=== PATIENT | male | born 1960 | race Caucasian/White ===

== ENCOUNTER 2016-08-06 12:41 | Observation (INO) | payer MEDICARE, BC ==
[~2016-08-06] VITALS: Ht 167.6 cm
[2016-08-06 14:56] LABS: BASOPHILS 0 % (0.0-2.0); EOSINOPHILS 0 % (0-7); HEMATOCRIT 38.5 % (42.0-54.0); HEMOGLOBIN 13.6 g/dL (13.5-17.5); IMMATURE GRANULOCYTES 0.4 % (0-5); LYMPHOCYTES 9.4 % (15-50); MCH 36.1 pg (26.0-34.0); MCHC 35.3 g/dL (31.0-37.0); MCV 102.1 fL (80.0-100.0); MEAN PLATELET VOLUME 10.6 fL (7.4-10.4); MONOCYTES 9.1 % (2-11); NEUTROPHILS 81.1 % (40-80); PLATELET COUNT 98 10x3/uL (130-400); RBC 3.77 10x6/uL (4.20-6.10); RDW 13.6 % (11.5-14.5); WBC 7.4 10x3/uL (4.8-10.8)
[2016-08-06 15:23] LABS: ALKALINE PHOSPHATASE 45 U/L (46-116); ALT (SGPT) 66 U/L (10-68); BILIRUBIN - TOTAL 0.59 mg/dL (0.2-1.3); CALC OSMOLALITY 286 mosm/kg (275-300); CARBON DIOXIDE 28.9 mmol/L (21.0-32.0); CHLORIDE - SERUM 103 mmol/L (98-107); CREATININE - SERUM 1.4 mg/dL (0.6-1.3); POTASSIUM - SERUM 4.9 mmol/L (3.5-5.1); PROTEIN - SERUM 7.7 g/dL (6.4-8.2); SODIUM 140 mmol/L (136-145); UREA NITROGEN 23 mg/dL (7-18); eGFR NON AFRICAN AMERICAN 56 mL/min (90-120)
[2016-08-06 15:24] LABS: GLUCOSE 179 mg/dL (74-106)
[2016-08-06 15:27] LABS: CREATINE KINASE 94 UL (21-232); PRO BNP 181 pg/mL (0-125); TROPONIN-I < 0.017 ng/mL (0.000-0.060)
[2016-08-06 16:01] LABS: PLATELET ESTIMATE DECREASED
[2016-08-06 18:53] LABS: APPEARANCE CLEAR (CLEAR); BILIRUBIN NEGATIVE (NEGATIVE); COLOR YELLOW (YELLOW); GLUCOSE NEGATIVE (NEGATIVE); KETONE NEGATIVE (NEGATIVE); LEUKOCYTE ESTERASE NEGATIVE (NEGATIVE); NITRITE NEGATIVE (NEGATIVE); PROTEIN TRACE mg/dL (NEGATIVE); UROBILINOGEN NORMAL (NORMAL)
[2016-08-06 20:49] LABS: MAGNESIUM - SERUM 1.6 mg/dL (1.8-2.4); THYROID STIMULATING HORMONE 0.52 uIU/mL (0.36-3.74)
--- NOTE | 2016-08-06 22:35 | NUR ---
RECIEVED TO [id number] VIA STRECHER FROM ER.ACCOMPANIED BY STAFF AND SPOUSE.AWAKE ALERT,ORIENTED. NO COMPLIANTS VOICED AT PRESENT. ASSESSMENT DONE. CL IN REACH. AT BEDSIDE.
[2016-08-07 01:08] VITALS: BP 103/66; Ht 167.6 cm
--- NOTE | 2016-08-07 02:31 | NUR ---
RESTING QUIETLY. NO DISTRESS NOTED. CL IN REACH.
[2016-08-07] MEDS ORDERED: XANAX0.25 MG PO ×2 (04:31→04:54)
[2016-08-07] MEDS ORDERED: BACTRIM 400-801 TAB PO (04:55)
[2016-08-07] MEDS ORDERED: LIPITOR20 MG PO (04:56)
[2016-08-07] MEDS ORDERED: ASCORBIC ACID500 MG (04:58)
[2016-08-07] MEDS ORDERED: PREDNISONE5 MG PO (04:58)
[2016-08-07] MEDS ORDERED: AMBIEN5 MG PO (04:59)
[2016-08-07] MEDS ORDERED: METOPROLOL TAR100 M1 (05:00)
[2016-08-07] MEDS ORDERED: IMURAN50 MG (05:02)
[2016-08-07] MEDS ORDERED: MAG-OXIDE400 MG PO (05:03)
[2016-08-07] MEDS ORDERED: FERROUS SULFAT325 MG PO (05:04)
[2016-08-07] MEDS ORDERED: LOVAZA1 G PO (05:06)
[2016-08-07] MEDS ORDERED: VALCYTE450 MG (05:08)
[2016-08-07] MEDS ORDERED: GABAPENTIN100 MG PO (05:08)
[2016-08-07] MEDS ORDERED: LOMOTIL TABLET1 TAB (05:10)
[2016-08-07] MEDS ORDERED: ZOFRAN4 MG PO (05:10)
[2016-08-07] MEDS ORDERED: THEREMS M ×7 (05:11→05:20)
[2016-08-07] MEDS ORDERED: PROGRAF0.5 M1 (05:13)
[2016-08-07] MEDS ORDERED: [UNRECOGNIZED DRUG - OTHER] ×3 (05:14→05:23)
[2016-08-07] MEDS ORDERED: ZOFRAN ODT4 MG/UDTAB PO (05:17)
[2016-08-07] MEDS ORDERED: TACROLIMUS ANHYD1 MG PO (05:17)
[2016-08-07] MEDS ORDERED: HYDROCODONE-APA1 TAB (05:20)
[2016-08-07] MEDS ORDERED: CIALIS5 MG PO (05:21)
[2016-08-07] MEDS ORDERED: ALENDRONATE SOD70 MG PO (05:21)
[2016-08-07] MEDS ORDERED: OMEPRAZOLE40 MG PO (05:22)
[2016-08-07] MEDS ORDERED: IPRATROPIUM BR21 MCG NASAL (05:22)
[2016-08-07] MEDS ORDERED: FLUTICASONE PRO16 GM NASAL (05:22)
--- NOTE | 2016-08-07 07:00 | NUR ---
REPORT RECIEVED ASSUMED CARE. PATIENT IN BED WITH IV INTACT. NO COMPLAINTS. CALL LIGHT WITHIN REACH.
[2016-08-07] MEDS ORDERED: MECLIZINE HCL25 MG PO (07:18)
--- NOTE | 2016-08-07 08:46 | NUR ---
PATIENT RECIEVED DC INSTRUCTIONS. VERBALIZED UNDERSTANDING. NO QUESTIONS AT THIS TIME. IV REMOVED WITH CATH TIP INTACT. AWAITING TRANSPORTATION FOR DC. CALL LIGHT WITHIN REACH.
--- NOTE | 2016-08-07 09:54 | NUR ---
PATIENT ESCORTED OUT OF HOSPITAL VIA WC WITH PERSONAL BELONGINGS BY VOLUNTEER TO PRIVATE VEHICLE.
--- NOTE | 2016-08-09 08:46 | HP ---
PATIENT: FELI CARRERO MEDICAL RECORD: [id number] ACCOUNT: [id number] LOCATION:D.MS [facility]2236 : 64 ADMISSION DATE: 08/06/16 HISTORY AND PHYSICAL EXAMINATION DATE OF ADMISSION: 08/06/2016 CHIEF COMPLAINT: Nausea and vomiting. HISTORY OF PRESENT ILLNESS: The patient is a 56-year-old gentleman, who has had a history of bilateral lung transplant. The patient states on Thursday he became acutely ill with acute nausea and vomiting. He had dizziness as well. On Thursday, symptoms had resolved. On Thursday, this returned. The patient was unable to keep any oral intake down. It was felt the patient warranted admission. PAST MEDICAL HISTORY: His past history is significant that he has had bilateral lung transplant. He has had a history of back surgery times 2, hyperlipidemia, and insomnia. He has had a history of shortness of breath. FAMILY HISTORY: His family history is significant that father had esophageal cancer. Sister had malignant breast cancer. Sister had ovarian cancer as well. Mother had Parkinson disease. ALLERGIES: ANTI-INFLAMMATORIES. MEDICATIONS: Alendronate 70 mg once a week, alprazolam 0.25 p.o. q.8 hours p.r.n. anxiety, Vitamin C 500 mg p.o. q. day, atorvastatin 20 mg once a day, azathioprine 50 mg p.o. b.i.d., Cialis 5 mg, 1 p.o. q. day, vitamin B12 of 2000 mcg daily, Lomotil p.r.n. diarrhea, ferrous sulfate 325 one p.o. t.i.d., gabapentin 100 mg t.i.d., hydrocodone 10/325, one every 6 hours p.r.n. severe pain, ipratropium 0.03% nasal spray, mag oxide 400 mg 2 tabs p.o. b.i.d., metoprolol tartrate 100 mg p.o. b.i.d., omega 3 one b.i.d., Prilosec 40 mg, 1 p.o. b.i.d., Zofran 4 mg, 1 p.o. q. day, prednisone 5 mg once a day, Bactrim 400/80, one p.o. q. day, and zolpidem 5 mg once a day. HABITS: None. REVIEW OF SYSTEMS: CONSTITUTIONAL: He denies any headaches, seizure or syncope. HEENT: He Denies change in visual or auditory acuity. PULMONARY: He denies any shortness of breath, cough, congestion, history of asthma, or bronchitis. CARDIOVASCULAR: No chest pain, palpitation, PND, or orthopnea. GASTROINTESTINAL: As stated above. GENITOURINARY: No urgency, frequency, or dysuria. PHYSICAL EXAMINATION: GENERAL: In the Emergency Room, the patient was acutely ill. VITAL SIGNS: Stable. HEENT: Normal. NEUROLOGIC: Cranial nerves II through XII were grossly intact. NECK: Supple. There is no adenopathy. HEART: Had a regular rate and rhythm without any murmurs, gallops or rubs. LUNGS: Clear. HISTORY AND PHYSICAL [id number] FELI CARRERO ABDOMEN: Soft. Bowel sounds are positive. LABORATORY DATA: The patient did have slight elevation in his creatinine. ASSESSMENT: Slight dehydration with chronic nausea, vomiting, and acute vertigo. PLAN: The patient will be admitted. He will be given meclizine as well as IV hydration, antiemetics, reevaluate in the a.m. TRANSINT:[id number] Voice Confirmation ID: [id number] DOCUMENT ID: [id number] WINNIE BENSON MD at 0846 CC: [id number] DICTATION DATE: 08/07/16 0741 TIP MENDER: 08/07/16 0826 DIS IN 08/07/16 [place] [id number] [place] [id number]
== END 2016-08-07 09:55 | disposition home or self-care (01) ==
LOC: D.ER 12:41 → OBSVTIME 21:47 → D.MS 21:47
PROVIDERS: Emergency Medicine; Nurse Practitioner Family; ADMIT Family Medicine
DX: E86.0 Dehydration (principal); R42 Dizziness and giddiness; E78.5 Hyperlipidemia, unspecified; G47.00 Insomnia, unspecified; Z94.2 Lung transplant status

== ENCOUNTER 2016-10-02 11:11 | Day surgery (SDC) | payer MEDICARE, BC ==
[~2016-10-02] VITALS: Ht 167.6 cm; Wt 95.0 kg
[~2016-10-02 11:11] MED LIST: ALENDRONATE SOD70 MG PO; AMBIEN5 MG PO; ASCORBIC ACID500 MG; BACTRIM 400-801 TAB PO; CIALIS5 MG PO; FERROUS SULFAT325 MG PO; FLUTICASONE PRO16 GM NASAL; GABAPENTIN100 MG PO; HYDROCODONE-APA1 TAB; IMURAN50 MG; IPRATROPIUM BR21 MCG NASAL; LIPITOR20 MG PO; LOMOTIL TABLET1 TAB; LOVAZA1 G PO; MAG-OXIDE400 MG PO; MECLIZINE HCL25 MG PO; METOPROLOL TAR100 M1; OMEPRAZOLE40 MG PO; PREDNISONE5 MG PO; PROGRAF0.5 M1; TACROLIMUS ANHYD1 MG PO; THEREMS M; VALCYTE450 MG; XANAX0.25 MG PO; ZOFRAN ODT4 MG/UDTAB PO; ZOFRAN4 MG PO; [UNRECOGNIZED DRUG - OTHER]
[2016-10-02 12:28] LABS: BASOPHILS 0 % (0.0-2.0); EOSINOPHILS 0.2 % (0-7); HEMATOCRIT 35.7 % (42.0-54.0); HEMOGLOBIN 12.9 g/dL (13.5-17.5); IMMATURE GRANULOCYTES 0.2 % (0-5); LYMPHOCYTES 17.1 % (15-50); MCH 36.5 pg (26.0-34.0); MCHC 36.1 g/dL (31.0-37.0); MCV 101.1 fL (80.0-100.0); MEAN PLATELET VOLUME 10.6 fL (7.4-10.4); NEUTROPHILS 75.5 % (40-80); PLATELET COUNT 108 10x3/uL (130-400); RBC 3.53 10x6/uL (4.20-6.10); RDW 12.6 % (11.5-14.5); WBC 5.9 10x3/uL (4.8-10.8)
[2016-10-02 12:47] LABS: ANION GAP 12.9 mmol/L (8-16); CALCIUM 9.2 mg/dL (8.5-10.1); CARBON DIOXIDE 26.5 mmol/L (21.0-32.0); CREATININE - SERUM 1.9 mg/dL (0.6-1.3); POTASSIUM - SERUM 4.4 mmol/L (3.5-5.1)
[2016-10-02 13:12] VITALS: BP 132/76; Ht 167.6 cm; Wt 95.0 kg
--- NOTE | 2016-10-02 15:27 | NUR ---
1450- IV D/C'D, PT TOLERATED. CATHETER INTACT. 1510- DISCHARGE INSTRUCTIONS COMPLETED. PT VERBALIZED UNDERSTANDING. PAPERWORK SIGNED 1515- PT DISCHARGED VIA WHEELCHAIR WITH
--- NOTE | 2016-10-07 10:50 | OP ---
PATIENT NAME: FELI CARRERO MEDICAL RECORD: [id number] :64 LOCATION:D.OPS ADMISSION DATE: SURGEON: LORE MATTA DO DATE OF OPERATION: 10/02/2016 PROCEDURE: Colonoscopy. SCOPE: Olympus video pediatric colonoscope. MEDICATIONS: Propofol 300 mg IV per anesthesia. INDICATIONS FOR PROCEDURE: Personal history of colon polyps. FINDINGS: Informed consent was given. The patient was made comfortable with the above medication. After reaching an adequate level of sedation by slow IV push, the patient was placed in the left side. The digital rectal examination was performed that was normal. The endoscope was then advanced under direct visualization through the rectum to the terminal ileum. Scope was withdrawn slowly and the mucosa was carefully examined. Withdrawal time was 11 minutes total. The mucosa was normal throughout the entire colon and terminal ileum to the level of the rectum where there were some small petechial sites which could be prep related. This could also be proctitis, so random biopsies were performed to send for histology. Scope was withdrawn from the patient. The patient tolerated the procedure well and there were no complications. ESTIMATED BLOOD LOSS: Less than 3 cc. IMPRESSION: Normal colonoscopy to terminal ileum other was than some mild proctitis type changes in the rectum, which could be prep related. Biopsies pending. PLAN AND RECOMMENDATIONS: 1. Discharge home when recovery parameters are met. 2. Continue current diet and medications. 3. Await biopsy specimens results. 4. Recall colonoscopy in 3 years. TRANSINT:[id number] Voice Confirmation ID: [id number] DOCUMENT ID: [id number] LORE MATTA DO at 1050 CC: [id number] DICTATION DATE: 10/02/16 1401 CONSTRUCTION FIELD ENGINEER: 10/02/16 1710 [facility] 10/02/16 [place] [id number]
== END 2016-10-02 15:15 | disposition home or self-care (01) ==
LOC: D.OPS 11:11
PROVIDERS: Anesthesiology
DX: Z86.010 Personal history of colon polyps (principal); I10 Essential (primary) hypertension; K21.9 Gastro-esophageal reflux disease without esophagitis

== ENCOUNTER → 2017-07-15 08:07 | Outpatient (CLI) | payer MEDICARE, BC ==
[2016-10-02 13:12] VITALS: BMI 33.8
[~2017-07-15 08:07] MED LIST changes: +HYDROCODONE-APA1 TAB PO; +JANUVIA25 MG PO; +VITAMIN B-121000 MCG PO
== END | disposition home or self-care (01) ==
LOC: D.NM 08:07
DX: R10.9 Unspecified abdominal pain (principal)

== ENCOUNTER 2017-07-31 07:11 | Day surgery (SDC) | payer MEDICARE, BC ==
[2017-07-30 14:09] LABS: BASOPHILS 0.2 % (0-2); EOSINOPHILS 0.2 % (0-7); HEMATOCRIT 36.1 % (42.0-54.0); HEMOGLOBIN 12.6 g/dL (13.5-17.5); IMMATURE GRANULOCYTES 0.3 % (0-5); LYMPHOCYTES 15.3 % (15-50); MCH 36.2 pg (26.0-34.0); MCHC 34.9 g/dL (31.0-37.0); MCV 103.7 fL (80.0-100.0); MEAN PLATELET VOLUME 10.2 fL (7.4-10.4); MONOCYTES 8.2 % (2-11); NEUTROPHILS 75.8 % (40-80); RBC 3.48 10x6/uL (4.20-6.10); RDW 12.8 % (11.5-14.5); WBC 5.7 10x3/uL (4.8-10.8)
[2017-07-30 14:17] LABS: PLATELET COUNT 142 10x3/uL (130-400)
[2017-07-30 14:21] LABS: CALCIUM 9.4 mg/dL (8.5-10.1); CARBON DIOXIDE 28.9 mmol/L (21.0-32.0); CREATININE - SERUM 1.5 mg/dL (0.6-1.3); POTASSIUM - SERUM 4.9 mmol/L (3.5-5.1)
[~2017-07-31] VITALS: Ht 165.1 cm; Wt 92.1 kg
--- NOTE | ~2017-07-31 | OP ---
PATIENT NAME: FELI CARRERO MEDICAL RECORD: [id number] :64 LOCATION:D.OPS ADMISSION DATE: SURGEON: CHELE PEREZ MD DATE OF OPERATION: 07/31/2017 PREOPERATIVE DIAGNOSES: 1. Gallstones. 2. Pulmonary alveolar proteinosis, status post bilateral lung transplant. 3. Hypertension. 4. Hyperlipidemia. 5. Diabetes mellitus. POSTOPERATIVE DIAGNOSES: 1. Gallstones. 2. Pulmonary alveolar proteinosis, status post bilateral lung transplant. 3. Hypertension. 4. Hyperlipidemia. 5. Diabetes mellitus. PROCEDURE: Laparoscopic cholecystectomy. SURGEON: Chele Perez MD REPORT OF PROCEDURE: The patient's abdomen was prepped and draped in sterile fashion. A cutdown was made on the superior aspect of the umbilicus, 0 Vicryls were placed in the fascia bilaterally and the fascia was incised with 15-blade. I then bluntly entered the peritoneal cavity and placed a 12-mm Robert port. Under direct visualization, a 5 mm trocar was placed in the epigastrium and 2 more 5-mm trocars were placed in the right subcostal region. The gallbladder was grasped and elevated. The cystic artery and cystic duct were dissected free and these were clipped proximally and distally and ligated in standard fashion. The gallbladder was taken off the liver bed using electrocautery and placed into the right upper quadrant. Any bleeding from the liver bed was then treated with electrocautery. At this point, the ports and insufflation were then removed and the gallbladder was taken out through the umbilicus. The umbilical fascia was closed with interrupted 0 Vicryls times 3. The wounds were then infused with a total of 10 mL of 0.25% Marcaine with epinephrine. The skin incisions were all closed with subcutaneous 5-0 Monocryl and dressed appropriately. COMPLICATIONS: None. CONDITION: Stable. ANESTHESIA: General endotracheal and local. BLOOD LOSS: Minimal. TRANSINT:[id number] Voice Confirmation ID: [id number] DOCUMENT ID: [id number] OPERATIVE REPORT [id number] FELI CARRERO CHELE PEREZ MD CC: WINNIE BENSON [id number] DICTATION DATE: 07/31/17 1122 SKI BASE TRIMMER: 07/31/17 1134 REG [facility] [address] [place] [address]
[~2017-07-31 07:11] MED LIST changes: -HYDROCODONE-APA1 TAB PO
[2017-07-31 08:58] VITALS: BP 156/87; Ht 165.1 cm; Wt 92.1 kg
[2017-07-31] MEDS ORDERED: HYDROCODONE-APA1 TAB PO (11:18)
== END 2017-07-31 14:00 | disposition home or self-care (01) ==
LOC: D.OPS 07:11 → D.PAN 11:30 → D.OPS 11:30
PROVIDERS: Surgery
DX: K80.80 Other cholelithiasis without obstruction (principal); I10 Essential (primary) hypertension; E78.5 Hyperlipidemia, unspecified; E11.9 Type 2 diabetes mellitus without complications; J84.01 Alveolar proteinosis; G47.30 Sleep apnea, unspecified; Z01.812 Encounter for preprocedural laboratory examination

== ENCOUNTER 2017-12-10 05:41 | Emergency (ER) | payer MEDICARE, BC ==
[~2017-12-10] VITALS: Ht 165.1 cm; Wt 90.9 kg
[~2017-12-10 05:41] MED LIST changes: +HYDROCODONE-APA1 TAB PO
[2017-12-10 05:47] VITALS: Ht 165.1 cm; Wt 90.9 kg
[2017-12-10 07:13] VITALS: BP 121/87
== END 2017-12-10 07:13 | disposition home or self-care (01) ==
LOC: D.ER 05:41
DX: G56.03 Carpal tunnel syndrome, bilateral upper limbs (principal); M54.12 Radiculopathy, cervical region; E11.9 Type 2 diabetes mellitus without complications; I10 Essential (primary) hypertension

== ENCOUNTER 2018-05-20 14:42 | Inpatient (IN) | payer MEDICARE, BC ==
[~2018-05-20] VITALS: Ht 165.1 cm; Wt 85.0 kg
--- NOTE | ~2018-05-20 | DS ---
PATIENT:FELI CARRERO :64 MEDICAL RECORD: [id number] DISCHARGE SUMMARY ADMISSION DATE: 05/20/18 DISCHARGE DATE: 05/22/18 DATE OF ADMISSION: 05/20/2018 DATE OF DISCHARGE: 05/22/2018 ADMISSION DIAGNOSES: Febrile illness and patient on immunosuppressants. DISCHARGE DIAGNOSES: Febrile illness and the patient was on immunosuppressants for a bilateral lung transplant, also diabetes, chronic back pain. HOSPITAL COURSE: The patient was admitted to the Emergency Room with a temperature reported up to 101. Vital signs on admission recorded temperature of 100. The patient was cultured. Chest x-ray: No acute findings. CT abdomen and pelvis, no acute findings. Blood and urine cultures negative to date. The patient is anxious to go home. He is concerned about acquiring infection with hospitalization. He is discharged to home. Has remained afebrile. He was discharged home in improved condition with no recurrence of temperature spikes. PHYSICAL EXAMINATION: VITAL SIGNS ON DISCHARGE: Temperature 97.9, blood pressure 150/86, heart rate 67, respirations 18, O2 sats 99% room air. HEART: Regular rate and rhythm. LUNGS: Clear. ABDOMEN: Soft, nontender. Bowel sounds all 4 quadrants. EXTREMITIES: Present times 4. NEUROLOGIC: Intact. LABORATORY DATA: CBC: White count 4.9, hemoglobin 10.4, hematocrit 30.1, platelets 108. Chemistry: BUN 23, creatinine 1.4, sodium 144, potassium 4.3, chloride 107, bicarbonate 22.9, glucose 114. DISCHARGE INSTRUCTIONS: The patient will follow up with Dr. Saenz next week. We will resume his prophylactic medications as well as his immunosuppressants. Copy of his CT results given to the patient. He will follow up with the transplant center in [place] next week, 05/30/2018. The CT showed sigmoid diverticulosis without evidence of diverticulitis. A small pulmonary nodule. The visualized lung bases up to 4 mm in the left lower lobe. This will be reevaluated as an outpatient with his pearl glue drier in [place], again copy of the CT results given to the patient. He understands to return to the ER with any temperature spikes and follow up with Dr. Saenz his primary care physician next week. TRANSINT:[id number] Voice Confirmation ID: [id number] DOCUMENT ID: [id number] DISCHARGE SUMMARY REPORT [id number] MAGAN,ANNA VELASQUEZ DO at 1119 CC: [id number] DICTATION DATE: 05/22/18 0959 AVIONICS SYSTEMS ENGINEER: 05/22/18 2241 DIS IN 05/22/18 [place] [id number] [place] [address]
--- NOTE | ~2018-05-20 | MORECARE ---
CASE MANAGEMENT DISCHARGE SUMMARY PATIENT: FELI CARRERO UNIT: [id number] ADM DATE: 05/20/18 AGE: 57 : 64 SEX: M ROOM/BED: D.2220 AUTHOR: LAURA RATLIFF PHYSICIAN: REFERRING PHYSICIAN: WINNIE BENSON MD DATE OF SERVICE: 05/26/18 Discharge Plan Patient Name: FELI CARRERO [facility] [facility] 1960 Planned Disposition: Home Anticipated Discharge Date: 05/22/18 Discharge Date: 05/22/2018 Expected LOS: 2 Initial Reviewer: [email or web address] Initial Review Date: 05/20/2018 Generated: 05/26/18 11:30 am Coverage Notice Reviewer: [id number] Kavita Crocker Notice Issued Date-Time: 05/22/2018 12:18 Notice Type: IM Discharge Notice Notice Delivered To: Patient Relationship to Patient: Brokerage Office Manager Name: Delivery Method: HAND - Hand Delivered Ayesha Days: Prior Verbal Notification: Recipient Understood Notice: Yes Recipient Signature: Yes Med Rec Note Co-signed by Attending: Coverage Notice Comment: STATES IS READY FOR DISCHARGE. NO QUESTIONS NEEDS OR CONCERNS. COPY TO THE PATIENT. COPY TO THE CHART. Last DP export: 05/22/18 4:02 p Patient Name: FELI CARRERO Page [id number] at 1030 All edits/amendments must be made on the electronic document DICTATION DATE: 05/26/18 1030 ZIGZAG TUNNEL ELASTIC OPERATOR: ALLI 05/26/18 1030 RPT#: [id number] DC DATE:05/22/18 STATUS: DIS IN [facility] [address] [place] [address] END OF REPORT
--- NOTE | ~2018-05-20 | HP ---
PATIENT: FELI CARRERO MEDICAL RECORD: [id number] ACCOUNT: [id number] LOCATION:D.MS [facility]2220 : 64 ADMISSION DATE: 05/20/18 PCP: No PCP HISTORY AND PHYSICAL EXAMINATION HISTORY OF PRESENT ILLNESS: A 57-year-old male presented to the Emergency Room with shortness of breath, nausea, chest burning, sudden onset fever or chills. He reported temp up to 101. PAST MEDICAL HISTORY: He has a history of significant for bilateral lung transplant, he is on immunosuppressants, prophylactic medications as well. Also, history of chronic back pain, prior back surgeries, diabetes. REVIEW OF SYSTEMS: GENERAL: No known change in weight or appetite. HEENT: No cephalgia, visual changes, tinnitus, epistaxis, or dysphagia. CARDIOVASCULAR: Denies palpitations. Does admit burning sensation in his chest. PULMONARY: Denies hemoptysis. Admits again burning sensation in his chest, history as above. GASTROINTESTINAL: Denies hematemesis, hematochezia, or melena. Does admit nausea. Denies vomiting. GENITOURINARY: Denies dysuria. MUSCULOSKELETAL: No acute changes. ENDOCRINE: Denies polyuria, polydipsia, or polyphagia. Does have a history of diabetes. ALLERGIES: REPORTED NSAIDs, GRAPEFRUIT. MEDICATIONS: As per med rec. His will bring all of this immunosuppressant and supplemental medications from the transplant team to the hospital for administration and clarification. PHYSICAL EXAMINATION: VITAL SIGNS: Temp 98.1, temperature on admission. Recorded as 100, blood pressure 125/63, heart rate 78, respirations 17, O2 sats 99% on room air. GENERAL: Alert and oriented, no present distress. HEENT: Normocephalic, atraumatic. Eyes: Pupils are equally round and reactive to light and accommodation. Extraocular muscles are intact. Conjunctivae not injected. Ears: Canals patent. TMs are intact. Nose: Nares patent without drainage. Throat: No erythema, no exudates. NECK: Supple. No lymphadenopathy, no JVD. HEART: Regular rate and rhythm. No S3, S4, no rub. LUNGS: Clear to auscultation bilaterally. Breathing is nonlabored. ABDOMEN: Soft, nontender. Bowel sounds all 4 quadrants. EXTREMITIES: Present times 4. No edema. NEUROLOGIC: Intact. LABORATORY DATA: CBC: White count 7.3, hemoglobin 10.5, hematocrit 29.8, platelets 94. Chemistry shows a sodium of 141, potassium 4.1, chloride 106, bicarbonate 28.6, BUN 32, creatinine 1.5, glucose 123, AST 10, ALT 18, albumin 3.1. Urinalysis: Yellow, clear, normal UA. ABG: pH 7.44, pCO2 36.7, pO2 of 63. Rapid flu was negative. PT is 13.1, INR 1.04, CK is 149, CK-MB 0.5. Chest x-ray: No acute process. EKG: Sinus rhythm with a rate of 85, normal EKG. HISTORY AND PHYSICAL [id number] FELI CARRERO ASSESSMENT AND PLAN: 1. Acute febrile illness with the patient on immunosuppressants. Also, of note, he failed. He was recently treated as outpatient for I believed urinary tract infection. The patient is admitted. Blood and urine cultures obtained. IV antibiotics started. Vancomycin and meropenem. Supportive care. We will restart his home medications after clarification from his . 2. Diabetes. Sliding scale insulin. Supportive care. 3. Chronic back pain. Continue home pain medications. TRANSINT:[id number] Voice Confirmation ID: [id number] DOCUMENT ID: [id number] ANNA HOLLINS DO at 1007 CC: [id number] DICTATION DATE: 05/21/18 0743 FORMS DESIGNER: 05/21/18 0828 ADM IN [place] [id number] [place] [address]
--- NOTE | ~2018-05-20 | MORECARE ---
CASE MANAGEMENT DISCHARGE SUMMARY PATIENT: FELI CARRERO UNIT: [id number] ADM DATE: 05/20/18 AGE: 57 : 64 SEX: M ROOM/BED: D.2220 AUTHOR: LAURA RATLIFF PHYSICIAN: REFERRING PHYSICIAN: WINNIE BENSON MD DATE OF SERVICE: 05/22/18 Discharge Plan Patient Name: FELI CARRERO [facility] [facility] 1960 Planned Disposition: Home Anticipated Discharge Date: 05/22/18 Discharge Date: 05/22/2018 Expected LOS: 2 Initial Reviewer: [email or web address] Initial Review Date: 05/20/2018 Generated: 05/22/18 6:01 pm Coverage Notice Reviewer: [email or web address] Kavita Crocker Notice Issued Date-Time: 05/22/2018 12:18 Notice Type: IM Discharge Notice Notice Delivered To: Patient Relationship to Patient: Research Microbiologist Name: Delivery Method: HAND - Hand Delivered Ayesha Days: Prior Verbal Notification: Recipient Understood Notice: Yes Recipient Signature: Yes Med Rec Note Co-signed by Attending: Coverage Notice Comment: STATES IS READY FOR DISCHARGE. NO QUESTIONS NEEDS OR CONCERNS. COPY TO THE PATIENT. COPY TO THE CHART. Patient Name: FELI CARRERO Page [phone] at 1702 All edits/amendments must be made on the electronic document DICTATION DATE: 05/22/181700 WAREHOUSE ASSOCIATE DRIVER: ALLI 05/22/181700 RPT#: [id number] DC DATE:05/22/18 STATUS: DIS IN [facility] [address] [place] [address] END OF REPORT
[~2018-05-20 14:42] MED LIST changes: -METOPROLOL TAR100 M1; +METOPROLOL TART50 MG PO; +THEREMS M PO
[2018-05-20 15:31] LABS: BASOPHILS 0 % (0-2); EOSINOPHILS 0 % (0-7); HEMATOCRIT 32.6 % (42.0-54.0); HEMOGLOBIN 11.5 g/dL (13.5-17.5); IMMATURE GRANULOCYTES 0.1 % (0-5); LYMPHOCYTES 4.3 % (15-50); MCHC 35.3 g/dL (31.0-37.0); MCV 99.1 fL (80.0-100.0); MEAN PLATELET VOLUME 10.4 fL (7.4-10.4); MONOCYTES 10.2 % (2-11); NEUTROPHILS 85.4 % (40-80); RBC 3.29 10x6/uL (4.20-6.10); RDW 12.9 % (11.5-14.5); WBC 8.7 10x3/uL (4.8-10.8)
[2018-05-20 15:32] LABS: PLATELET COUNT 112 10x3/uL (130-400)
[2018-05-20 15:41] LABS: APTT 24.5 SECONDS (22.8-39.4); INR 1.04 (0.85-1.17); PROTIME 13.1 SECONDS (11.6-15.0)
[2018-05-20 15:55] LABS: ALBUMIN 3.9 g/dL (3.4-5.0); ALKALINE PHOSPHATASE 48 U/L (46-116); ALT (SGPT) 23 U/L (10-68); BILIRUBIN - TOTAL 0.57 mg/dL (0.2-1.3); CALC OSMOLALITY 287 mosm/kg (275-300); CALCIUM 8.9 mg/dL (8.5-10.1); CARBON DIOXIDE 23.6 mmol/L (21.0-32.0); CHLORIDE - SERUM 102 mmol/L (98-107); CREATININE - SERUM 1.6 mg/dL (0.6-1.3); GLUCOSE 170 mg/dL (74-106); POTASSIUM - SERUM 4.7 mmol/L (3.5-5.1); PROTEIN - SERUM 7.7 g/dL (6.4-8.2); SODIUM 137 mmol/L (136-145); UREA NITROGEN 40 mg/dL (7-18); eGFR NON AFRICAN AMERICAN 48 mL/min (90-120)
[2018-05-20 15:58] LABS: CKMB 0.5 U/L (0.0-3.6); CREATINE KINASE 149 UL (21-232); PRO BNP 404 pg/mL (0-125)
[2018-05-20 15:59] LABS: TROPONIN-I < 0.017 ng/mL (0.000-0.060)
[2018-05-20 22:44] LABS: COLOR YELLOW (YELLOW)
[2018-05-20 22:45] LABS: APPEARANCE CLEAR (CLEAR); BACTERIA NONE SEEN /hpf (NONE SEEN); BILIRUBIN NEGATIVE (NEGATIVE); EPITHELIAL CELLS NSEEN /hpf (0-5); GLUCOSE NEGATIVE (NEGATIVE); KETONE NEGATIVE (NEGATIVE); NITRITE NEGATIVE (NEGATIVE); PROTEIN NEGATIVE (NEGATIVE); RED CELLS - URINE 0-5 /hpf (0-5); UROBILINOGEN NORMAL (NORMAL); WHITE CELLS - URINE NSEEN /hpf (0-5)
[2018-05-20 23:33] VITALS: BP 134/64
[2018-05-21] VITALS (8 sets, daily range): BP systolic 107–155; BP diastolic 57–84; Ht 165.1 cm; Wt 85.0 kg
[2018-05-21 04:32] LABS: BASOPHILS 0 % (0-2); EOSINOPHILS 0.1 % (0-7); HEMATOCRIT 29.8 % (42.0-54.0); HEMOGLOBIN 10.5 g/dL (13.5-17.5); IMMATURE GRANULOCYTES 0.3 % (0-5); LYMPHOCYTES 12.8 % (15-50); MCH 35.4 pg (26.0-34.0); MCHC 35.2 g/dL (31.0-37.0); MCV 100.3 fL (80.0-100.0); MEAN PLATELET VOLUME 9.6 fL (7.4-10.4); MONOCYTES 9.6 % (2-11); NEUTROPHILS 77.2 % (40-80); PLATELET COUNT 94 10x3/uL (130-400); RBC 2.97 10x6/uL (4.20-6.10); WBC 7.3 10x3/uL (4.8-10.8)
[2018-05-21] MEDS ORDERED: CALCIUM 250+D T1 TAB PO (04:40)
[2018-05-21] MEDS ORDERED: IPRATROPIUM BR21 MCG NASAL (04:44)
[2018-05-21] MEDS ORDERED: AMBIEN5 MG PO (04:46)
[2018-05-21] MEDS ORDERED: VITAMIN D5000 UNIT PO (04:46)
[2018-05-21 04:48] LABS: ALBUMIN 3.1 g/dL (3.4-5.0); ANION GAP 10.5 mmol/L (8-16); BILIRUBIN - TOTAL 0.55 mg/dL (0.2-1.3); CALCIUM 8.2 mg/dL (8.5-10.1); CARBON DIOXIDE 28.6 mmol/L (21.0-32.0); CREATININE - SERUM 1.5 mg/dL (0.6-1.3); POTASSIUM - SERUM 4.1 mmol/L (3.5-5.1); PROTEIN - SERUM 6.7 g/dL (6.4-8.2)
[2018-05-21] MEDS ORDERED: JANUVIA25 MG PO (04:48)
[2018-05-21] MEDS ORDERED: ALENDRONATE SOD70 MG PO (04:54)
[2018-05-21] MEDS ORDERED: PROGRAF0.5 M1 PO (04:55)
[2018-05-22 05:17] LABS: BASOPHILS 0.2 % (0-2); EOSINOPHILS 0.2 % (0-7); HEMATOCRIT 30.1 % (42.0-54.0); HEMOGLOBIN 10.4 g/dL (13.5-17.5); IMMATURE GRANULOCYTES 0.2 % (0-5); LYMPHOCYTES 16.8 % (15-50); MCH 34.6 pg (26.0-34.0); MCHC 34.6 g/dL (31.0-37.0); MEAN PLATELET VOLUME 10.3 fL (7.4-10.4); MONOCYTES 8.1 % (2-11); NEUTROPHILS 74.5 % (40-80); PLATELET COUNT 108 10x3/uL (130-400); RBC 3.01 10x6/uL (4.20-6.10); RDW 12.7 % (11.5-14.5)
[2018-05-22 05:19] VITALS: BP 139/78
[2018-05-22 05:19] LABS: WBC 4.9 10x3/uL (4.8-10.8)
[2018-05-22 05:21] LABS: ANION GAP 11.4 mmol/L (8-16); BILIRUBIN - TOTAL 0.4 mg/dL (0.2-1.3); CALCIUM 8.4 mg/dL (8.5-10.1); CARBON DIOXIDE 29.9 mmol/L (21.0-32.0); CREATININE - SERUM 1.4 mg/dL (0.6-1.3); MAGNESIUM - SERUM 1.6 mg/dL (1.8-2.4); POTASSIUM - SERUM 4.3 mmol/L (3.5-5.1); PROTEIN - SERUM 6.5 g/dL (6.4-8.2)
[2018-05-22 09:05] VITALS: BP 150/86
== END 2018-05-22 12:53 | disposition home or self-care (01) | DRG 864 ==
LOC: D.ER 14:42 → D.EDHOLD 20:13 → D.MS 20:13
PROVIDERS: Family Medicine
DX: R50.9 Fever, unspecified (principal); Z94.2 Lung transplant status; R06.02 Shortness of breath; E11.9 Type 2 diabetes mellitus without complications; Z79.899 Other long term (current) drug therapy

== ENCOUNTER 2018-10-27 12:26 | Emergency (ER) | payer MEDICARE, BC ==
[~2018-10-27] VITALS: Ht 165.1 cm; Wt 90.0 kg
[~2018-10-27 12:26] MED LIST changes: +CALCIUM 250+D T1 TAB PO; +PROGRAF0.5 M1 PO; +VITAMIN D5000 UNIT PO
[2018-10-27 12:30] VITALS: Ht 165.1 cm; Wt 90.0 kg
[2018-10-27] MEDS ORDERED: LOVAZA (12:38)
[2018-10-27] MEDS ORDERED: VALCYTE450 MG PO (12:40)
[2018-10-27 13:47] LABS: BASOPHILS 0.2 % (0-2); HEMATOCRIT 33.8 % (42.0-54.0); HEMOGLOBIN 12.2 g/dL (13.5-17.5); IMMATURE GRANULOCYTES 0.2 % (0-5); LYMPHOCYTES 27.4 % (15-50); MCH 35.7 pg (26.0-34.0); MCHC 36.1 g/dL (31.0-37.0); MCV 98.8 fL (80.0-100.0); MEAN PLATELET VOLUME 10.2 fL (7.4-10.4); MONOCYTES 5.7 % (2-11); NEUTROPHILS 65.5 % (40-80); RBC 3.42 10x6/uL (4.20-6.10); RDW 12.3 % (11.5-14.5)
[2018-10-27 13:51] LABS: PLATELET COUNT 134 10x3/uL (130-400)
[2018-10-27 13:59] LABS: APTT 26.7 SECONDS (22.8-39.4); INR 1.07 (0.85-1.17); PROTIME 13.4 SECONDS (11.6-15.0)
[2018-10-27 14:01] LABS: ALBUMIN 3.7 g/dL (3.4-5.0); ALKALINE PHOSPHATASE 55 U/L (46-116); ALT (SGPT) 28 U/L (10-68); BILIRUBIN - TOTAL 0.44 mg/dL (0.2-1.3); CALC OSMOLALITY 288 mosm/kg (275-300); CARBON DIOXIDE 25.6 mmol/L (21.0-32.0); CHLORIDE - SERUM 105 mmol/L (98-107); CREATININE - SERUM 1.9 mg/dL (0.6-1.3); GLUCOSE 153 mg/dL (74-106); POTASSIUM - SERUM 4.3 mmol/L (3.5-5.1); PROTEIN - SERUM 7.7 g/dL (6.4-8.2); SODIUM 140 mmol/L (136-145); UREA NITROGEN 33 mg/dL (7-18); eGFR NON AFRICAN AMERICAN 39 mL/min (90-120)
[2018-10-27 14:12] LABS: CKMB 0.9 U/L (0.0-3.6); CREATINE KINASE 109 UL (21-232); MAGNESIUM - SERUM 1.7 mg/dL (1.8-2.4)
[2018-10-27 14:13] LABS: TROPONIN-I < 0.017 ng/mL (0.000-0.060)
[2018-10-27 14:22] LABS: APPEARANCE CLEAR (CLEAR); COLOR DK YELLOW (YELLOW); NITRITE NEGATIVE (NEGATIVE); SPECIFIC GRAVITY 1.025 (1.005-1.020)
[2018-10-27 14:23] LABS: BACTERIA FEW /hpf (NONE SEEN); BILIRUBIN NEGATIVE (NEGATIVE); EPITHELIAL CELLS 0-5 /hpf (0-5); GLUCOSE NEGATIVE (NEGATIVE); HYALINE CAST RARE /lpf (NONE SEEN); KETONE SMALL mg/dL (NEGATIVE); MUCUS <1+ /lpf (NONE SEEN); PROTEIN 2+ mg/dL (NEGATIVE); RED CELLS - URINE 0-5 /hpf (0-5); UROBILINOGEN NORMAL (NORMAL); WHITE CELLS - URINE RARE /hpf (0-5)
[2018-10-27 18:04] VITALS: BP 166/94
== END 2018-10-27 17:50 | disposition home or self-care (01) ==
LOC: D.ER 12:26
PROVIDERS: Family Medicine
DX: R06.02 Shortness of breath (principal); R07.9 Chest pain, unspecified

== ENCOUNTER 2020-08-17 10:44 | Day surgery (SDC) | payer MEDICARE, BC ==
[~2020-08-17] VITALS: Ht 165.1 cm; Wt 93.2 kg
--- NOTE | ~2020-08-17 | OP ---
PATIENT NAME: FELI CARRERO MEDICAL RECORD: [id number] :64 LOCATION:DCyndiOPS ADMISSION DATE: SURGEON: SHAR TORREZ MD DATE OF OPERATION: 08/17/2020 PROCEDURE: Colonoscopy. PREOPERATIVE DIAGNOSES: History of polyps. MEDICATION: Propofol per anesthesia. Colonoscopy was performed. The colonoscope was inserted through the rectum and advanced to the cecum, identified by the ileocecal valve and the appendiceal orifice. The quality of the prep was good. The entire examined mucosa was normal. The patient tolerated the procedure well. There were no immediate complications. FINAL DIAGNOSIS: Normal colonoscopy. PLAN: Repeat colonoscopy in 3 years given history of polyps. TRANSINT:[id number] Voice Confirmation ID: [id number] DOCUMENT ID: [id number] SHAR TORREZ MD CC: [id number] DICTATION DATE: 08/17/20 1321 COMMUNICATIONS MEDIA PROFESSOR: 08/17/20 2336 [facility] 08/17/20 [facility] [address] [place] [address]
[~2020-08-17 10:44] MED LIST changes: +LOVAZA; +VALCYTE450 MG PO
[2020-08-17 11:12] LABS: BASOPHILS 0.4 % (0-2); EOSINOPHILS 0.7 % (0-7); HEMATOCRIT 34.4 % (42.0-54.0); HEMOGLOBIN 11.8 g/dL (13.5-17.5); IMMATURE GRANULOCYTES 0.4 % (0-5); LYMPHOCYTE ABS# 0.71 10x3/uL (1.32-3.57); LYMPHOCYTES 15.8 % (15-50); MCH 33.2 pg (26.0-34.0); MCHC 34.3 g/dL (31.0-37.0); MCV 96.9 fL (80.0-100.0); MONOCYTES 9.1 % (2-11); NEUTROPHIL ABS# 3.31 10x3/uL (1.78-5.38); NEUTROPHILS 73.6 % (40-80); PLATELET COUNT 146 10x3/uL (130-400); RBC 3.55 10x6/uL (4.20-6.10); RDW 13.2 % (11.5-14.5); WBC 4.5 10x3/uL (4.8-10.8)
[2020-08-17 11:19] LABS: ANION GAP 12.3 mmol/L (8-16); CALCIUM 8.8 mg/dL (8.5-10.1); CARBON DIOXIDE 26.1 mmol/L (21.0-32.0); CREATININE - SERUM 1.9 mg/dL (0.6-1.3); POTASSIUM - SERUM 4.4 mmol/L (3.5-5.1)
[2020-08-17] MEDS ORDERED: VASCEPA1 GM PO (11:45)
[2020-08-17] MEDS ORDERED: ZITHROMAX250 MG PO (11:46)
[2020-08-17 11:57] VITALS: BP 129/80; Ht 165.1 cm; Wt 93.2 kg
--- NOTE | 2020-08-17 13:59 | NUR ---
DC INSTRUCTIONS GIVEN TO PT. STATES UNDERSTANDING. DC'D IV CATH FULLY INTACT. WILL DC SHORTLY
--- NOTE | 2020-08-17 14:04 | NUR ---
PT LEFT UNIT VIA WC AT 1407
== END 2020-08-17 14:07 | disposition home or self-care (01) ==
LOC: D.OPS 10:44
PROVIDERS: Anesthesiology; ATTEND Internal Medicine Gastroenterology
DX: Z86.010 Personal history of colon polyps (principal); Z12.11 Encounter for screening for malignant neoplasm of colon; I10 Essential (primary) hypertension; E11.9 Type 2 diabetes mellitus without complications